=== PATIENT | female | born 1980 | race African-American/Black ===

== ENCOUNTER 2017-09-30 08:57 | Emergency (ER) | payer OTHER ==
[2017-09-30] MEDS ORDERED: SODIUM CHLORIDE 0.9% 1,000 ML IV ONE ×3 (09:16→17:41)
[2017-09-30 09:23] LABS: BASOPHILS # (AUTO) 0.1 10^3/uL (0.0-0.1); BASOPHILS % (AUTO) 0.5 %; EOSINOPHILS % (AUTO) 0.2 %; HCT - HEMATOCRIT 34.1 % (37.0-47.0); HGB - HEMOGLOBIN 11.6 g/dL (12.0-16.0); LYMPHOCYTES # (AUTO) 2.1 10^3/uL (1.5-3.5); LYMPHOCYTES % (AUTO) 12.3 %; MEAN CORPUSCULAR HEMOGLOBIN 29.2 pg (27.0-31.0); MEAN CORPUSCULAR HGB CONC 34.1 g/dL (32.0-36.0); MEAN CORPUSCULAR VOLUME 85.7 fL (81.0-99.0); MEAN PLATELET VOLUME 8.2 fL (7.9-10.8); MONOCYTES # (AUTO) 1.1 10^3/uL (0.0-1.0); MONOCYTES % (AUTO) 6.8 %; NEUTROPHILS # (AUTO) 13.4 10^3/uL (1.5-6.6); NEUTROPHILS % (AUTO) 80.2 %; RED BLOOD COUNT 3.98 10^6/uL (4.20-5.40); RED CELL DISTRIBUTION WIDTH 12.9 % (12.0-15.0); UNCORRECTED WHITE BLOOD COUNT 16.7 x10^3/uL; WHITE BLOOD COUNT 16.7 x10^3/uL (4.8-10.8)
[2017-09-30] MEDS ORDERED: ONDANSETRON 4 MG/2 ML VIAL IVP STA (09:29)
[2017-09-30] MEDS ORDERED: MORPHINE 2 MG/ML SYRINGE IVP STA (09:29)
[2017-09-30 09:33] LABS: BILIRUBIN,URINE NEGATIVE (NEGATIVE); PH,URINE 6.5 PH (5.0-7.5)
[2017-09-30 09:34] LABS: UA w/ MICROSCOPIC CHARGE YES
[2017-09-30 09:35] LABS: HCG UR QUAL NEGATIVE
[2017-09-30] MEDS ORDERED: MORPHINE 2 MG/ML SYRINGE ONE (09:36)
[2017-09-30] MEDS ORDERED: ONDANSETRON 4 MG/2 ML VIAL ONE (09:36)
--- NOTE | 2017-09-30 09:37 | ED Physician Documentation ---
History of Present Illness - Stated complaint Stated Complaint: ABD PX - Chief complaint Chief Complaint: Abd Pain - Additonal information Additional information: hx from pt 37 female LMP 1 week ago denies preg no prior surgery 3 days of diffuse abd pain NV no BM until today and that was watery + fever first two days no vag bleed or dc no dysuria bloated and distended kids sick with "the flu" no travel no bad food Review of Systems Constitutional: reports: Fever Cardiac: denies: Chest pain / pressure Respiratory: denies: Dyspnea, Cough GI: reports: Abdominal Pain, Vomiting, Constipation, Diarrhea : reports: LMP (1 w ago). denies: Dysuria, Vaginal bleeding, Now EGA Endocrine: denies: Easy bruising / bleeding Immunocompromised: denies: Immunocompromised PD PAST MEDICAL HISTORY - Past Medical History Past Medical History: No - Past Surgical History Past Surgical History: No - Present Medications Home Medications: Ambulatory Orders Medication Instructions Recorded Confirmed No Known Home Medications [No 09/30/17 09/30/17 Known Home Medications] - Allergies Allergies/Adverse Reactions: Allergies Allergy/AdvReac Type Severity Reaction Status Date / Time No Known Drug Allergies Allergy Verified 09/30/17 09:04 - Social History Does the pt smoke?: No Smoking Status: Never smoker Does the pt drink ETOH?: No Does the pt have substance abuse?: No - Immunizations Immunizations are current?: Yes PD ED PE NORMAL - Vitals Vital signs reviewed: Yes (tachy) - Cardiac Cardiac: RRR - Respiratory Respiratory: No respiratory distress - Abdomen Abdomen: Other (miod distension, diffusely TTP with vol guarding, firm ? mass low abd). No: Normal bowel sounds (decreased) - Rectal Rectal: Other (soft brown stool high in vault, no impaction, fullness / mass anterior to rectum) - Derm Derm: Normal color - Neuro Neuro: Alert and oriented X 3 Results - Vitals Vitals: Vital Signs - 24 hr 09/30/17 09/30/17 09/30/17 09:00 10:26 12:31 Temperature 37.4 C 37.7 C H Heart Rate 118 H 100 99 Respiratory 18 16 16 Rate Blood Pressure 144/99 H 136/99 H 129/90 H O2 Saturation 100 99 100 09/30/17 09/30/17 09/30/17 13:45 14:26 16:19 Temperature 36.9 C 38.8 C H Heart Rate 109 H 118 H Respiratory 15 16 Rate Blood Pressure 134/99 H 139/98 H 119/83 H O2 Saturation 98 100 100 09/30/17 17:42 Temperature 38.0 C H Heart Rate 102 H Respiratory 18 Rate Blood Pressure 138/92 H O2 Saturation 98 Oxygen O2 Source Room air - Labs Labs: Laboratory Tests 09/30/17 09/30/17 09/30/17 09:13 09:13 09:26 WBC 16.7 H RBC 3.98 L Hgb 11.6 L Hct 34.1 L MCV 85.7 MCH 29.2 MCHC 34.1 RDW 12.9 Plt Count 272 MPV 8.2 Neut # 13.4 H Lymph # 2.1 [place] # 1.1 H Eos # 0.0 Baso # 0.1 Absolute Nucleated RBC 0.00 Nucleated RBC % 0.0 Sodium 135 Potassium 3.0 L Chloride 100 L Carbon Dioxide 24 Anion Gap 11.0 BUN 9 Creatinine 0.9 Estimated GFR (MDRD) 84 L Glucose 120 H Lactic Acid Calcium 9.1 Total Bilirubin 1.0 AST 54 H ALT 84 H Alkaline Phosphatase 97 Total Protein 8.3 H Albumin 3.7 Globulin 4.6 H Albumin/Globulin Ratio 0.8 L Lipase 21 L Urine Color YELLOW Urine Clarity CLEAR Urine pH 6.5 Ur Specific [place] 1.010 Urine Protein TRACE Urine Glucose (UA) NEGATIVE Urine Ketones NEGATIVE Urine Occult Blood MODERATE H Urine Nitrite NEGATIVE Urine Bilirubin NEGATIVE Urine Urobilinogen 1 (NORMAL) Ur Leukocyte Esterase NEGATIVE Urine RBC 6-10 H Urine WBC 6-10 H Ur Squamous Epith Cells MOD Squamous H Urine Bacteria Few Urine Casts 0-2 Hyaline Casts Urine Mucus Few Strands Ur Microscopic Review INDICATED Urine Culture Comments NOT INDICATED Urine HCG, Qual NEGATIVE 09/30/17 17:08 WBC RBC Hgb Hct MCV MCH MCHC RDW Plt Count MPV Neut # Lymph # [place] # Eos # Baso # Absolute Nucleated RBC Nucleated RBC % Sodium Potassium Chloride Carbon Dioxide Anion Gap BUN Creatinine Estimated GFR (MDRD) Glucose Lactic Acid 0.9 Calcium Total Bilirubin AST ALT Alkaline Phosphatase Total Protein Albumin Globulin Albumin/Globulin Ratio Lipase Urine Color Urine Clarity Urine pH Ur Specific [place] Urine Protein Urine Glucose (UA) Urine Ketones Urine Occult Blood Urine Nitrite Urine Bilirubin Urine Urobilinogen Ur Leukocyte Esterase Urine RBC Urine WBC Ur Squamous Epith Cells Urine Bacteria Urine Casts Urine Mucus Ur Microscopic Review Urine Culture Comments Urine HCG, Qual - Rads (name of study) CT AP with con Radiology: See rad report (large complex 16.3X8.5X9.5 cm loculated posterior midline pelvic mass/copllection concerning for a large abscess but etiology unclear (rad favor appendix or tuboovarian), also could be a large necrotic mass with secondary infection, no free air or FF, mild tiago hydro 2/2 mass effect , gallstones, no SBO) pelvic sono Radiology: See rad report (nl uterus and ovaries) CT AP c PO and rectal con Radiology: See rad report (no uptake into mass - per rad read ddx is still large abscess vs necrotic mass) PD MEDICAL DECISION MAKING - ED course ED course: large pelvic abscess of unclear source (appendix or tubal) or a necrotic mass called surgery and CONCERT PIANIST att [address] Delaney CONCERT PIANIST, req sono, sono done and shows nl ovaries and uterus, Dr Delaney examined pt, does not feel this is CONCERT PIANIST related / TOA etc, signed off see her consult surgeon reviewed imaging with rads and feel this is an abscess and amenable to IR drainage and that would be better for pt than an open procedure also pt has elev WBC is tachy and spiked a fever in the ER which makes abscess more likely [facility] to IR Dr Holm and hospitalist Dr Hogan and pt is accepted in transfer Departure - Departure Disposition: 02 Transfer Acute Care Hosp Clinical Impression: Pelvic abscess, Pelvic mass Condition: Good Discharge Date/Time: 09/30/17 18:11
[2017-09-30 09:41] LABS: ALBUMIN/GLOBULIN RATIO 0.8 (1.0-2.2); CALCIUM 9.1 mg/dL (8.5-10.3); CREATININE 0.9 mg/dL (0.4-1.0); TOTAL PROTEIN 8.3 g/dL (6.7-8.2)
[2017-09-30 09:47] LABS: UR CULTURE IF IND NOT INDICATED
[2017-09-30] MEDS ORDERED: IOPAMIDOL-300 100 ML VIAL ONE (10:00)
[2017-09-30] MEDS ORDERED: IOPAMIDOL-300 100 ML VIAL IVP ONE (10:23)
--- NOTE | 2017-09-30 11:02 | CT Report ---
EXAM: CT ABDOMEN AND PELVIS EXAM DATE: 09/30/2017 10:13 AM. CLINICAL HISTORY: Abd pain, distension, peritoneal. COMPARISONS: None. TECHNIQUE: Routine helical CT imaging was performed through the abdomen and pelvis. IV contrast: 100 cc Isovue-300. Enteric contrast: No. Reconstructions: Coronal and sagittal. In accordance with CT protocol optimization, one or more of the following dose reduction techniques w ere utilized for this exam: automated exposure control, adjustment of mA and/or KV based on patient s ize, or use of iterative reconstructive technique. FINDINGS: Lung Bases: Minor dependent changes on the right. Liver: Upper normal in size with smooth contour. No focal lesion. Widely patent vasculature. Gallbladder/Bile Ducts: Cholelithiasis and suboptimally distended gallbladder. No gross gallbladder w all thickening or pericholecystic infiltration. No ductal dilatation. Spleen: No splenomegaly or focal lesion. Pancreas: Unremarkable. Adrenal Glands: No nodule. Kidneys: Mild bilateral hydronephrosis. No stones or focal abnormality. Normal bilateral parenchymal enhancement. No perinephric fluid or fat stranding. Peritoneal Cavity/Bowel: Small hiatus hernia. Fluid-filled upper normal caliber small bowel in the lo wer abdomen. No colonic dilatation. Appendix is not well depicted. No free fluid or free air. No mese nteric adenopathy by CT size criteria. A tiny fat-containing umbilical hernia. Pelvic Organs: The urinary bladder is displaced anteriorly and uterus left lateral anteriorly by a la rge complex loculated collection approximately 16.3 x 8.5 x 9.5 cm in the posterior midline extending from lower pelvis to the level of the umbilicus. A prominent air-fluid level and mottled small gas p ockets and hypodense fluid within, associated with a mildly irregular somewhat thickened peripheral r ind. It exerts mass effect on the distal ureters. The distal colon and rectum abut this mass but does not appear grossly inflamed. The left ovary is likely normal. The right ovary is not well depicted. Vasculature: No aneurysm or significant findings identified. Bones: Unremarkable. IMPRESSION: 1. A large complex loculated posterior midline pelvic collection 16.3 x 8.5 x 9.5 cm, worrisome for l arge abscess, origin indeterminate. A large necrotic mass that secondarily infected could be in the d ifferential. Neither the appendix nor the right ovary are well depicted. No free fluid, free air, or pathologic adenopathy identified. 2. Upper normal caliber small bowel in the lower abdomen, potentially mild adynamic ileus. No aleksander i ntestinal obstruction. 3. Mild bilateral hydronephrosis secondary to extrinsic mass effect of the pelvic lesion on the dista l ureters. 4. Cholelithiasis, without obvious acute cholecystitis. [facility] The above findings were discussed with Dr. Motta by Dr. Trevor Calvillo at 10:55 hrs on 09/30/17. Referring Provider Line: [phone] SITE ID: [id number]
[2017-09-30] MEDS ORDERED: IOPAMIDOL-300 50 ML VIAL ONE ×2 (11:30→13:31)
[2017-09-30] MEDS ORDERED: IBUPROFEN 100 MG/5 ML UDC ONE (14:08)
[2017-09-30] MEDS: IOPAMIDOL-300 50 ML VIAL PO ONE ×2 (14:24→14:25)
--- NOTE | 2017-09-30 14:46 | CT Preliminary Report ---
Exam: CT ABDOMEN/PELVIS W/O IMPRESSION: 1. Large complex pelvic mass, abscess versus necrotic neoplasm as previously suggested. 2. Cholelithiasis and other chronic or incidental findings. [facility] SITE ID: [id number]
--- NOTE | 2017-09-30 14:48 | CT Report ---
EXAM: CT ABDOMEN AND PELVIS EXAM DATE: 09/30/2017 02:08 PM. CLINICAL HISTORY: Pelvic mass or abscess. COMPARISONS: An earlier enhanced study of this same date.. TECHNIQUE: Routine helical CT imaging was performed through the abdomen and pelvis. IV contrast: None . Enteric contrast: Yes, oral and rectal. Reconstructions: Coronal and sagittal. In accordance with CT protocol optimization, one or more of the following dose reduction techniques w ere utilized for this exam: automated exposure control, adjustment of mA and/or KV based on patient s ize, or use of iterative reconstructive technique. FINDINGS: Lung Bases: Unremarkable. Small hiatal hernia. Liver: Normal. No masses. Gallbladder/Bile Ducts: Multiple gallstones. No ductal dilation. Spleen: Normal. Pancreas: Normal. Adrenal Glands: Normal. Kidneys: Minimal bilateral hydronephrosis. Residual contrast in collecting structures. Peritoneal Cavity/Bowel: Normal. No free fluid, free air or adenopathy. No masses or acute inflammato ry process. Unremarkable region of appendix. Pelvic Organs: Contrast-filled urinary bladder effaced by large mass, displaced anteriorly; displacem ent of uterus to the left as previously noted. Rectum and sigmoid displaced and effaced. The mass vanessa sures roughly 17 x 9 x 10 cm, is irregular and mildly thickened wall with large amount of air and flu id debris resulting and an air fluid level. Rectal tube in place. There is little infiltration of fat adjacent to the mass. Vasculature: No aneurysms or other significant abnormality. Bones: No significant abnormality. Other: None. IMPRESSION: 1. Large complex pelvic mass, abscess versus necrotic neoplasm as previously suggested. 2. Cholelithiasis and other chronic or incidental findings. [facility] Referring Provider Line: [phone] SITE ID: [id number]
[2017-09-30] MEDS ORDERED: ACETAMINOPHEN 1,000 MG/100 ML 100 ML IV STA (15:20)
[2017-09-30] MEDS ORDERED: PIPERACILLIN/TAZOBACTAM 3.375 GM in SODIUM CHLORIDE 0.9% MINIBAG 100 ML IV STA (15:20)
[2017-09-30] MEDS ORDERED: ACETAMINOPHEN 1,000 MG/100 ML 100 ML IV ONE (16:16)
[2017-09-30] MEDS ORDERED: SODIUM CHLORIDE 0.9% 2,000 ML IV ONE (16:45)
--- NOTE | 2017-09-30 17:41 | CONSULTATION NOTE ---
DATE OF CONSULTATION: 09/30/2017 00:00:00 REQUESTING PROVIDER: IDENTIFICATION: A 37-year-old G3, P3-0-0-3, LMP about 1 week ago. HISTORY OF PRESENT ILLNESS: The patient presents today with her , Bunny . She states that s he presented here because Bunny thought she had the stomach flu. She felt bloated and also has fecal urgency. She had a fever over the weekend and took TheraFlu and felt much better. She states that she had a little bit of watery stool here in the emergency department, but has not had her normal daily morning bowel movement. She denies any vaginal bleeding or abnormal vaginal discharge. Patient states that she occasionally has boils outside of her vulva and her , Bunny, has encouraged her not to shave. They denied any rectal sex. I was consulted by Dr. Fabby Bangura to see this patient as they are concerned that there may be a pe lvic mass. PAST MEDICAL HISTORY: None. PAST SURGICAL HISTORY: None. ALLERGIES: NO KNOWN DRUG ALLERGIES. MEDICATIONS: None. They prefer to go to the [facility]. SOCIAL HISTORY: She denies any tobacco, alcohol or illicit drug use. She is to Bunny Jr. Oscar, and they have 3 children together, ages 9, 4, and 3. 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 Bunny is in the [facility] and he is status post vasectomy. PAST OBSTETRICAL HISTORY: Three term spontaneous vaginal deliveries, the biggest baby measuring 7 julisa nds and change. PAST GYNECOLOGIC HISTORY: She states that she had a history of abnormal Pap smears, but subsequent Pa p smears have spontaneously resolved. She denies any cold knife cones, LEEPs, or cryotherapy. She sta kendall that she has monthly menses and bleeds for 3 days. She denies any menorrhagia or dysmenorrhea. Loly mckeon also denies any sexually transmitted diseases. She did have a Mirena IUD in the past, but states th at she did not like it secondary to dysmenorrhea. FAMILY HISTORY: She denies any female carcinoma. REVIEW OF SYSTEMS: Negative unless otherwise stated. OBJECTIVE: VITAL SIGNS: Temperature is 99.9, heart rate 100, blood pressure 136/99. GENERAL: Patient is a well-developed, well-nourished Samoan female in no apparent distress. She is alert and oriented x3. She is very pleasant and easy to speak to and she does have mild Filipina acce nt. HEENT: Within normal limits. ABDOMEN: Benign. No peritoneal signs. Pelvic examination reveals a very large rectal mass protruding into the vagina. The mass has pushed t he uterus away so that I cannot appreciate the uterus. Test results show a white count 16.7, H and H of 11.6 and 34.1, platelets of 272. Sodium 135, potassi um 3.0, chloride 100, carbon dioxide 24, BUN 9, creatinine 0.9, glucose 120, AST 54, ALT 84. Urinalysis shows moderate blood, 6-10 red blood cells and 6-10 white blood cells per powered field. T here are moderate squamous epithelial cells, few bacteria. HCG is negative. CT of abdomen and pelvis: 1. Showed a large complex loculated posterior midline pelvic collection measuring 16.3 x 8.5 x 9.5 cm worrisome for large abscess, origin indeterminate, large necrotic mass secondarily infected could be in differential. Neither the appendix nor the right ovary were well depicted. No free air, free flui d or pathologic adenopathy identified. 2. Upper normal caliber small bowel in the lower abdomen, potentially mild adynamic ileus, no aleksander i ntestinal obstruction. 3. Mild bilateral hydronephrosis secondary to extrinsic mass effect of the pelvic lesion on the dista l ureters. 4. Cholelithiasis without obvious acute cholecystitis. Pelvic ultrasound preliminary is not available, but I have reviewed the studies with Dr. Gomez. It does appear that the uterus is within normal limits, as well as the adnexa. There is good flow to tiago ateral ovaries. ASSESSMENT: 1. A 37-year-old G3, P3-0-0-3. 2. Rectal abscess. PLAN: 1. We will be happy to consult in the future should my services be required. 2. Discussed the plan with Dr. Fabby Bangura. JOB #: [id number] EXT JOB #:[id number]
[2017-09-30 17:43] VITALS: BP 138/92
--- NOTE | 2017-10-01 14:41 | Ultrasound Report ---
PELVIC ULTRASOUND: 09/30/2017 CLINICAL INDICATION: Complex mass in pelvis, question OUTSIDE PRODUCTION INSPECTOR etiology. COMPARISON: CT same day. TECHNIQUE: Real-time scanning was performed with underwriting account representative static images obtained. FINDINGS: The uterus is anteverted, measuring 11.8 x 5.0 x 3.6 cm. The endometrial echo complex measures 4 mm. No focal myometrial lesion is seen. The ovaries are well visualized, and appear normal, with normal bilateral Doppler flow. The right measuring 4.0 x 2.4 x 1.4 cm, and the left measuring 3.5 x 2.7 x 2.3 cm. The complex mass posterior to the uterus is better evaluated by CT. No definite free fluid is seen. IMPRESSION: NORMAL UTERUS AND OVARIES. NO EVIDENT OUTSIDE PRODUCTION INSPECTOR EXPLANATION FOR THE COMPLEX MASS IDENTIFIED ON CT. MTDD
== END 2017-09-30 18:11 | disposition short-term general hospital (02) ==
LOC: ED 08:57
DX: N73.9 Female pelvic inflammatory disease, unspecified (principal); K61.1 Rectal abscess
CPT/HCPCS: 36415; 74176; 74177; 76856; 80053; 81001; 81025; 83605; 83690; 85025; 87040; 93975; 96361; 96365; 96368; 96375; 99284; J0131; J2270; Q9967; 81003; 87086

== ENCOUNTER 2018-01-10 07:56 | Emergency (ER) | payer OTHER ==
[2018-01-10 09:23] LABS: BASOPHILS # (AUTO) 0.1 10^3/uL (0.0-0.1); BASOPHILS % (AUTO) 0.9 %; EOSINOPHILS # (AUTO) 0.1 10^3/uL (0.0-0.7); EOSINOPHILS % (AUTO) 1.5 %; LYMPHOCYTES # (AUTO) 1.6 10^3/uL (1.5-3.5); LYMPHOCYTES % (AUTO) 25.7 %; MEAN CORPUSCULAR HEMOGLOBIN 28.4 pg (27.0-31.0); MEAN CORPUSCULAR HGB CONC 34.1 g/dL (32.0-36.0); MEAN CORPUSCULAR VOLUME 83.2 fL (81.0-99.0); MEAN PLATELET VOLUME 8.2 fL (7.9-10.8); MONOCYTES # (AUTO) 0.4 10^3/uL (0.0-1.0); MONOCYTES % (AUTO) 7.1 %; NEUTROPHILS % (AUTO) 64.8 %; PLT - PLATELET COUNT 208 10^3/uL (130-450); RED BLOOD COUNT 4.22 10^6/uL (4.20-5.40); RED CELL DISTRIBUTION WIDTH 16.9 % (12.0-15.0); WHITE BLOOD COUNT 6.2 x10^3/uL (4.8-10.8)
[2018-01-10 09:39] LABS: ALBUMIN 4.3 g/dL (3.2-5.5); ALBUMIN/GLOBULIN RATIO 1.4 (1.0-2.2); BILIRUBIN,TOTAL 0.5 mg/dL (0.2-1.0); BILIRUBIN,URINE NEGATIVE (NEGATIVE); CREATININE 0.9 mg/dL (0.4-1.0); GLUCOSE, URINE (UA) NEGATIVE (NEGATIVE); KETONES,URINE (UA) NEGATIVE (NEGATIVE); LEUKOCYTE ESTERASE, URINE TRACE (NEGATIVE); NITRITE,URINE NEGATIVE (NEGATIVE); OCCULT BLOOD,URINE TRACE-LYSE (NEGATIVE); PROTEIN,URINE NEGATIVE (NEGATIVE); TOTAL PROTEIN 7.4 g/dL (6.7-8.2); UROBILINOGEN,URINE 0.2 (NORMAL) E.U./dL (NORMAL)
[2018-01-10 10:00] LABS: CLARITY,URINE HAZY (CLEAR)
[2018-01-10 10:03] LABS: RBC,URINE 0-5 /HPF (0-5)
[2018-01-10 10:04] LABS: BACTERIA,URINE Few /HPF (None Seen); SQUAMOUS EPITHELIAL CELL,UR MOD Squamous (<= Few)
--- NOTE | 2018-01-10 11:05 | Ultrasound Report ---
RIGHT UPPER QUADRANT ULTRASOUND: 01/10/2018 CLINICAL INDICATION: Pain. TECHNIQUE: Real-time scanning was performed with credit resolution representative static images obtained. FINDINGS: The liver measures 15 cm. Hepatic echotexture is normal. No intrahepatic biliary dilatation or focal parenchymal lesion is present. The common bile duct measures 4 mm. The gallbladder demonstrates cholelithiasis. No wall thickening or pericholecystic fluid is seen. The right kidney measures 12 cm, and demonstrates no hydronephrosis. No free fluid is present. IMPRESSION: CHOLELITHIASIS, WITHOUT EVIDENCE OF ACUTE CHOLECYSTITIS OR BILIARY OBSTRUCTION. TD: 01/10/2018 11:04
--- NOTE | 2018-01-10 11:35 | ED Physician Documentation ---
PD HPI ABD PAIN - Stated complaint Stated Complaint: BACK PX - Chief complaint Chief Complaint: Back Pain - History obtained from History obtained from: Patient - History of Present Illness Timing - onset: How many days ago (2) Timing - details: Still present (but mild now compared to previously.) Quality: Pain Location: RUQ Radiation: Upper back Worsened by: Breathing Associated symptoms: Nausea. No: Fever, Vomiting Similar symptoms before: Has not had sx before - Additional information Additional information: The patient is a 37-year-old female who presents with right upper quadrant abdominal pain, radiating to the right mid back. Her pain started 2 days ago and has been waxing and waning since that time. It is more mild now than it was previously. She denies fever or cough. She reports nausea, without vomiting. Her pain is worse with inhalation. She denies history of similar symptoms in the past. 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 Review of Systems Constitutional: denies: Fever Nose: denies: Congestion Throat: denies: Sore throat Cardiac: denies: Chest pain / pressure Respiratory: denies: Dyspnea, Cough GI: reports: Abdominal Pain, Nausea. denies: Vomiting, Diarrhea : denies: Dysuria Skin: denies: Rash Musculoskeletal: reports: Back pain (mild right mid-back pain) Neurologic: denies: Focal weakness, Numbness, Headache PD PAST MEDICAL HISTORY - Past Medical History Past Medical History: Yes Cardiovascular: None Respiratory: None Neuro: None Endocrine/Autoimmune: None GI: Other (GI tumor resection) CANDLE WRAPPER: None : None HEENT: None Psych: None Musculoskeletal: None Derm: None - Past Surgical History Past Surgical History: No General: Bowel surgery - Present Medications Home Medications: Ambulatory Orders Medication Instructions Recorded Confirmed Imatinib Mesylate 1 tab PO DAILY 11/12/17 11/12/17 HYDROcod/ACETAM 5/325 [[place] 5/325] 1 - 2 ea PO Q6H PRN #15 tablet 01/10/18 Promethazine [Phenergan] 25 - 50 mg PO Q6H PRN #10 tab 01/10/18 - Allergies Allergies/Adverse Reactions: Allergies Allergy/AdvReac Type Severity Reaction Status Date / Time No Known Drug Allergies Allergy Verified 09/30/17 09:04 - Social History Does the pt smoke?: No Smoking Status: Never smoker Does the pt drink ETOH?: No Does the pt have substance abuse?: No - Immunizations Immunizations are current?: Yes PD ED PE NORMAL - Vitals Vital signs reviewed: Yes (normal) - General General: Alert and oriented X 3, Well developed/nourished - HEENT HEENT: Atraumatic, Moist mucous membranes, Pharynx benign - Neck Neck: No adenopathy, No JVD - Cardiac Cardiac: RRR, No murmur - Respiratory Respiratory: No respiratory distress, Clear bilaterally - Abdomen Abdomen: Normal bowel sounds, Soft, No organomegaly, Other (Tenderness to palpation in the right upper quadrant, without rebound tenderness or guarding.) - Back Back: No CVA TTP - Derm Derm: No rash - Extremities Extremities: No edema, No calf tenderness / cord - Neuro Neuro: Alert and oriented X 3, No motor deficit, Normal speech Results - Vitals Vitals: Oxygen O2 Source Room air - Labs Labs: Laboratory Tests 01/10/18 01/10/18 01/10/18 09:10 09:10 09:10 WBC 6.2 RBC 4.22 Hgb 12.0 Hct 35.1 L MCV 83.2 MCH 28.4 MCHC 34.1 RDW 16.9 H Plt Count 208 MPV 8.2 Neut # 4.0 Lymph # 1.6 Giles # 0.4 Eos # 0.1 Baso # 0.1 Absolute Nucleated RBC 0.01 Nucleated RBC % 0.1 Sodium 137 Potassium 3.4 L Chloride 103 Carbon Dioxide 24 Anion Gap 10.0 BUN 12 Creatinine 0.9 Estimated GFR (MDRD) 84 L Glucose 87 Calcium 9.0 Total Bilirubin 0.5 AST 28 ALT 31 Alkaline Phosphatase 58 Total Protein 7.4 Albumin 4.3 Globulin 3.1 Albumin/Globulin Ratio 1.4 Lipase 28 Urine Color YELLOW Urine Clarity HAZY Urine pH 6.0 Ur Specific [place] >=1.030 H Urine Protein NEGATIVE Urine Glucose (UA) NEGATIVE Urine Ketones NEGATIVE Urine Occult Blood TRACE-LYSE Urine Nitrite NEGATIVE Urine Bilirubin NEGATIVE Urine Urobilinogen 0.2 (NORMAL) Ur Leukocyte Esterase TRACE H Urine RBC 0-5 Urine WBC 0-3 Ur Squamous Epith Cells MOD Squamous H Urine Bacteria Few Ur Microscopic Review INDICATED Urine Culture Comments NOT INDICATED - Rads (name of study) RUQ U/S Radiology: Prelim report reviewed, EMP read contemporaneously, See rad report ( Cholelithiasis, without evidence of acute cholecystitis or biliary obstruction.) PD MEDICAL DECISION MAKING - ED course Complexity details: reviewed results, re-evaluated patient, considered differential, d/w patient, d/w family ED course: The patient's presentation is consistent with biliary colic. Ultrasound reveals gallstones without evidence of cholecystitis or biliary obstruction. CBC, chemistry panel, and urinalysis are all unremarkable. Her presentation does not suggest pancreatitis, bowel obstruction, or pneumonia. She declined pain medication. On repeat examination her abdominal exam is benign. She is being discharged with prescriptions for Phenergan and for Vicodin, 15 tablets. I discussed with her the diagnosis, advised outpatient follow-up with general surgery, as well as discussed potentially worrisome signs or symptoms that should prompt reevaluation in the emergency department. Departure - Departure Disposition: Home, Self Care Clinical Impression: Cholelithiasis Qualifiers: Cholelithiasis location: gallbladder Cholecystitis presence: without cholecystitis Biliary obstruction: without biliary obstruction Qualified Code(s) : K80.20 - Calculus of gallbladder without cholecystitis without obstruction Condition: Stable Instructions: ED Gallstone W Biliary Colic Follow-Up: Sharla Zhu MD [Provider Admit Priv/Credential] - Prescriptions: HYDROcod/ACETAM 5/325 [[place] 5/325] 1 - 2 ea PO Q6H PRN #15 tablet PRN Reason: Pain Promethazine [Phenergan] 25 - 50 mg PO Q6H PRN #10 tab PRN Reason: Nausea / Vomiting Comments: Your ultrasound shows gallstones, without acute infection of the gallbladder, or obstruction of the bile ducts. You can use Vicodin as prescribed as needed for pain. You can use Phenergan as prescribed as needed for nausea. Follow up with your primary physician within 1-2 weeks. Call to schedule appointment. Return to the emergency department if you develop increasing abdominal pain, persistent vomiting, or otherwise worsening symptoms. Discharge Date/Time: 01/10/18 11:45
[2018-01-10 11:46] VITALS: BP 122/84
== END 2018-01-10 11:45 | disposition home or self-care (01) ==
LOC: ED 07:56
DX: K80.20 Calculus of gallbladder without cholecystitis without obstruction (principal)
CPT/HCPCS: 36415; 76705; 80053; 81001; 81003; 83690; 85025; 87086; 99283; 99284

== ENCOUNTER 2018-01-20 10:23 | Day surgery (SDC) | payer OTHER ==
[2018-01-20] MEDS ORDERED: SCOPOLAMINE PATCH TOP ONE (10:41)
[2018-01-20] MEDS ORDERED: ceFAZolin 2 GM/50 ML 2 GM/50 ML BAG IV ONE (10:41)
[2018-01-20 10:49] LABS: HCG UR QUAL NEGATIVE
[2018-01-20] MEDS ORDERED: LACTATED RINGERS 1,000 ML IV ONE ×3 (10:59→11:56)
[2018-01-20] MEDS ORDERED: LIDOCAINE MPF 1%-EPI 1:200000 30 ML VIAL SUBQ ONE ×2 (11:36)
[2018-01-20] MEDS ORDERED: BUPIVACAINE 0.25% PF 30 ML VIAL SUBQ ONE ×2 (11:36)
[2018-01-20] MEDS ORDERED: MIDAZOLAM 2 MG/2 ML VIAL IVP ONE (11:47)
[2018-01-20] MEDS ORDERED: GLYCOPYRROLATE 1 MG/5 ML VIAL IVP ONE (11:47)
[2018-01-20] MEDS ORDERED: DEXAMETHASONE 4 MG/ML VIAL IVP ONE (11:47)
[2018-01-20] MEDS ORDERED: PROPOFOL 200 MG/20 ML VIAL IVP ONE (11:47)
[2018-01-20] MEDS ORDERED: fentaNYL 100 MCG/2 ML VIAL IVP ONE (11:47)
[2018-01-20] MEDS ORDERED: NEOSTIGMINE 1 MG/1 ML 10 ML MDV IVP ONE (11:47)
[2018-01-20] MEDS ORDERED: KETOROLAC 30 MG/ML VIAL ONE (13:02)
[2018-01-20] MEDS: HYDROmorphone 1 MG/ML SYRINGE ONE ×2 (13:02→13:07)
--- NOTE | 2018-01-20 13:41 | OPERATIVE REPORT ---
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 Findings: After obtaining informed consent the patient was brought into the operating room and positioned on the operating table in the supine position taking noted pressure points. The patient was intubated by anesthesia. Perioperative antibiotics were administered. The patient was then prepped and draped in the usual sterile fashion and a timeout was taken according to protocol. A 5 mm incision was made in the epigastric region to the right of the midline and a 5 mm Optiview trocar was utilized to enter the abdominal cavity. The abdomen was then insufflated and small bowel adhesions were noted in the midline. a 10 mm incision was then created above the umbilicus and the 12 mm port inserted above the umbilicus under direct visualization. 2 additional 5 mm ports were then placed along the patient's right lateral abdominal wall. The gallbladder was grasped and retracted over the dome of the liver. The gallbladder was noted to be adherent to the underlying omentum and duodenum. These structures were carefully dissected off the gallbladder with blunt dissection. The fundus of the gallbladder was grasped and retracted medially exposing the lateral attachments. The lateral attachments were carefully taken down working my way laterally to medially exposing the cystic duct. The cystic duct was circumferentially dissected free from surrounding fatty tissue. The cystic artery was similarly dissected out. The base of the gallbladder was dissected off of the liver bed and the critical view was obtained. The cystic duct was clipped with 2 clips placed proximally 1 distally and divided. The cystic artery was divided in a similar manner. The gallbladder was then removed from the gallbladder fossa with electrocautery. There was no spillage of bile and stones during the process of gallbladder removal. The gallbladder fossa was inspected for any signs of bleeding and none were noted. The gallbladder was then placed in a specimen bag and removed. The fascial incision was extended slightly with a blunt clamp to accommodate the gallbladder. 20 cc of marcaine was then injected at the costal margin intraperitoneally performing a TAP block. The umbilical incision was then closed using the Dillon Aguilar device and a [id number] 0 Vicryl suture . The abdominal cavity was then allowed to desufflate and all trochars were removed. The skin incisions were closed with 4-0 Monocryl. The patient was subsequently extubated and taken to the recovery room in stable condition. Estimated blood loss: Minimal Complications: None Specimen: Gallbladder
[2018-01-20] MEDS ORDERED: ONDANSETRON 4 MG/2 ML VIAL ONE (13:42)
[2018-01-20] MEDS ORDERED: oxyCOD/ACETAMIN 5 MG/325 MG TABLET PO ONE (15:01)
[2018-01-20 15:47] VITALS: BP 112/65
== END 2018-01-20 10:24 | disposition home or self-care (01) ==
LOC: SDS 10:23
PROVIDERS: ATTEND Surgery
PROC: 0FT44ZZ Resection of Gallbladder, Percutaneous Endoscopic Approach (ICD-10-PCS; principal; 2018-01-20 11:36)
DX: K80.10 Calculus of gallbladder with chronic cholecystitis without obstruction (principal)
CPT/HCPCS: 47562; 81025; A9270; J0690; J1170; J3490; J7120